=== PATIENT | female | born 2000 | race Caucasian/White ===

== ENCOUNTER 2019-12-17 01:08 | Emergency (ER) | payer BC ==
[~2019-12-17] VITALS: Ht 154.9 cm; Wt 65.9 kg
[2019-12-17 01:14] VITALS: BP 115/58; TEMP 97.9
[2019-12-17 01:41] LABS: COLLECTION METHOD CLEAN CATCH
[2019-12-17 01:47] LABS: MUCOUS Present /lpf; PH 6 (5-8); SQUAMOUS EPITHELIAL 0-2 /hpf; URINE APPEARANCE Clear; URINE BACTERIA None Seen /hpf; URINE BILIRUBIN Negative (NEGATIVE); URINE BLOOD Negative (NEGATIVE); URINE COLOR Yellow; URINE GLUCOSE Negative (NEGATIVE); URINE KETONE Negative (NEGATIVE); URINE LEUKOCYTE ESTERASE Negative (NEGATIVE); URINE NITRATE Negative (NEGATIVE); URINE PROTEIN(semi-quant) Negative (NEGATIVE); URINE RBC 0-2 /hpf; URINE UROBILINOGEN Negative (NEGATIVE)
[2019-12-17 01:55] LABS: TRICYCLIC ANTIDEPRESS URINE NEGATIVE
[2019-12-17] MEDS ORDERED: ATIVAN 1MG T1 MG/TAB PO (02:13)
[2019-12-17 02:19] VITALS: PULSE 83
== END 2019-12-17 02:20 | disposition home or self-care (01) ==
LOC: COL.ER 01:08
PROVIDERS: Emergency Medicine
DX: F41.9 Anxiety disorder, unspecified (principal)

== ENCOUNTER 2021-07-30 06:10 | Emergency (ER) | payer SELFPAY ==
[~2021-07-30] VITALS: Ht 152.4 cm; Wt 73.6 kg
[~2021-07-30 06:10] MED LIST: ATIVAN 1MG T1 MG/TAB PO
[2021-07-30 06:26] VITALS: BP 113/62
[2021-07-30 06:38] LABS: BASO % 0.5 % (0.0-2.0); EOS # 0.1 K/mm3 (0.0-0.7); EOS % 2.4 % (0-4.0); GRAN # 4.2 K/mm3 (1.4-6.5); GRAN % 70.4 % (42.2-75.2); HEMATOCRIT 37.1 % (37.0-47.0); HEMOGLOBIN 12.2 g/dl (12.5-16.0); LYMPH % 16.8 % (20.0-51.0); MEAN CELL VOLUME 91 fl (80.0-100.0); MEAN CORPUSCULAR HEMOGLOBIN 30 pg (27.0-31.0); MEAN CORPUSCULAR HGB CONC 33 g/dl (33.0-37.0); MEAN PLATELET VOLUME 10.9 fl (7.4-10.4); MONO # 0.6 K/mm3 (0.1-0.6); MONO % 9.7 % (1.7-9.3); PLATELET COUNT 207 K/mm3 (130-400); RED BLOOD COUNT 4.06 M/mm3 (4.10-5.30); REDCELL DISTRIBUTION WIDTH-CV 13.9 % (11.5-14.5)
[2021-07-30 06:57] LABS: CALCIUM 9.8 mg/dL (8.4-10.2); CREATININE, serum 0.78 mg/dL (0.57-1.11); POTASSIUM 3.4 mmol/L (3.5-4.5); TOTAL PROTEIN 6.8 gm/dL (6.2-8.1)
[2021-07-30 07:08] LABS: BILIRUBIN,TOTAL 0.9 mg/dL (0.2-1.2)
[2021-07-30 10:34] LABS: COLLECTION METHOD CLEAN CATCH
[2021-07-30 10:49] LABS: MUCOUS Present /lpf; PH 5 (5-8); URINE APPEARANCE Hazy; URINE BACTERIA Rare /hpf; URINE BILIRUBIN Negative (NEGATIVE); URINE BLOOD 3+ (NEGATIVE); URINE COLOR Yellow; URINE GLUCOSE Negative (NEGATIVE); URINE KETONE Negative (NEGATIVE); URINE LEUKOCYTE ESTERASE Negative (NEGATIVE); URINE NITRATE Negative (NEGATIVE); URINE PROTEIN(semi-quant) 1+ (NEGATIVE); URINE RBC >50 /hpf; URINE UROBILINOGEN Negative (NEGATIVE)
[2021-07-30] MEDS ORDERED: FLOMAX 0.40.4 MG/CAP PO (12:07)
[2021-07-30] MEDS ORDERED: ZOFRAN ODT4 MG PO (12:07)
[2021-07-30] MEDS ORDERED: CEPHALEXIN500 M1 PO (12:07)
[2021-07-30] MEDS ORDERED: PERCOCET 325 MG1 TA2 PO (12:07)
[2021-07-30 12:25] VITALS: PULSE 91; TEMP 98.5
== END 2021-07-30 12:25 | disposition home or self-care (01) ==
LOC: COL.ER 06:10
PROVIDERS: Emergency Medicine; Personal Emergency Response Attendant
DX: N13.2 Hydronephrosis with renal and ureteral calculous obstruction (principal)
CPT/HCPCS: J1170; J2405; J7030

== ENCOUNTER 2022-03-27 17:19 | Emergency (ER) | payer MEDICAID ==
[~2022-03-27] VITALS: Ht 152.4 cm; Wt 69.5 kg
[~2022-03-27 17:19] MED LIST changes: +CEPHALEXIN500 M1 PO; +FLOMAX 0.40.4 MG/CAP PO; +PERCOCET 325 MG1 TA2 PO; +ZOFRAN ODT4 MG PO
[2022-03-27 17:35] VITALS: TEMP 97.1
[2022-03-27 20:08] VITALS: BP 132/78; PULSE 76
== END 2022-03-27 20:08 | disposition home or self-care (01) ==
LOC: COL.ER 17:19
DX: O26.893 Other specified pregnancy related conditions, third trimester (principal); M54.32 Sciatica, left side; Z3A.29 29 weeks gestation of pregnancy; Z28.310 Unvaccinated for COVID-19

== ENCOUNTER 2022-05-29 18:54 | Inpatient (IN) | payer MEDICAID ==
[~2022-05-29] VITALS: Ht 152.4 cm; Wt 73.2 kg
[2022-06-06] VITALS (17 sets, daily range): BP systolic 85–123; BP diastolic 53–75; PULSE 49–88; TEMP 97.8–98.6
--- NOTE | 2022-06-06 08:15 | NUR ---
0815 PT AMBULATORY TO UNIT WITH SUPPORT PERSON. PT PLACED IN ROOM, CHANGED INTO GOWN, COMFORTABLE IN BED. EFM TRACING CAT 1, TOCO TRACING. PT REPORTS NO CTX, NO LEAKING OF FLUID, POSITIVE MOVEMENT. UPDATED PT ON PLAN OF CARE. WILL CONTINUE TO MONITOR.
[2022-06-06 09:01] LABS: BASO % 0.3 % (0.0-2.0); EOS % 0.2 % (0.0-4.0); GRAN % 78.3 % (42.2-75.2); HEMOGLOBIN 10.7 g/dl (12.5-16.0); LYMPH % 15.9 % (20.0-51.0); MEAN CELL VOLUME 88 fl (80.0-100.0); MEAN CORPUSCULAR HEMOGLOBIN 30 pg (27-31); MEAN CORPUSCULAR HGB CONC 34 g/dl (33.0-37.0); MEAN PLATELET VOLUME 11.4 fl (7.4-10.4); MONO # 0.6 K/mm3 (0.1-0.6); MONO % 4.6 % (1.7-9.3); PLATELET COUNT 215 K/mm3 (130-400); RED BLOOD COUNT 3.56 M/mm3 (4.10-5.30); REDCELL DISTRIBUTION WIDTH-CV 13.2 % (11.5-14.5)
[2022-06-06 09:02] LABS: HEMATOCRIT 31.4 % (37.0-47.0)
--- NOTE | 2022-06-06 14:06 | NUR ---
Dietitian Helper rounds: Patient and Patient Mother were waiting for their ride. Expected to discharge today. Dietitian Helper provided blessing for baby Asa.
[2022-06-07 05:15] VITALS: BP 105/66; PULSE 75; TEMP 97.8
[2022-06-07 08:30] VITALS: BP 114/62; PULSE 81; TEMP 98.3
[2022-06-07 16:00] VITALS: BP 103/55; PULSE 71; TEMP 97.6
[2022-06-07 19:45] VITALS: BP 115/53; PULSE 65; TEMP 97.9
[2022-06-08 07:00] VITALS: BP 109/67; PULSE 72; TEMP 97.6
[2022-06-08] MEDS ORDERED: IBU800 M1 PO (08:55)
[2022-06-08] MEDS ORDERED: PERCOCET 325 MG1 TA2 PO (08:55)
[2022-06-08] MEDS ORDERED: LEXAPRO 10MG10 MG PO (08:57)
== END 2022-06-08 12:25 | disposition home or self-care (01) | DRG 787 ==
LOC: OB
PROVIDERS: ADMIT Obstetrics & Gynecology
PROC: 10D00Z1 Extraction of Products of Conception, Low, Open Approach (ICD-10-PCS; principal; 2022-06-06)
DX: O34.211 Maternal care for low transverse scar from previous cesarean delivery (principal); O98.32 Other infections with a predominantly sexual mode of transmission complicating childbirth; O99.344 Other mental disorders complicating childbirth; F41.9 Anxiety disorder, unspecified; F32.A Depression, unspecified; A60.09 Herpesviral infection of other urogenital tract; Z3A.39 39 weeks gestation of pregnancy; Z37.0 Single live birth
CPT/HCPCS: J0690; J1885; J2175; J2250; J2370; J2405; J2590; J7120

== ENCOUNTER 2022-06-02 16:22 | Outpatient (CLI) | payer MEDICAID ==
[~2022-06-02] VITALS: Ht 152.4 cm; Wt 73.2 kg
--- NOTE | 2022-06-02 16:20 | NUR ---
PT WHEELED TO L&D UNIT BY Luis Eduardo DAN RN. PT HAD ONE EPISODE OF EMESIS DURING TRANSIT. PT ACCOMPANIES BY PARTNER CASSIE. PT PLACED IN ROOM 5 FOR FURTHER EVALUATION. 1640-PT CHANGED INTO CLEAN GOWN AND PLACED ON MONITOR. PT CAME TO THE UNIT BECAUSE SHE IS HAVING UPPER ABDOMINAL PAIN THAT RADIATES TO HER BACK THAT BEGAN AT 1540. PT DECREASED MOVEMENT, VAGINAL BLEEING, AND LEAKING OF FLUID. SVE FT/50/-3 PERFORMED BY Luis Eduardo DAN RN. VS WNL. 1651- DR. WOOD NOTIFIED VIA TELEPHONE. ORDERS GIVEN FOR IV HDRATION, ZOFRAN, PROTONIX, CBC, CMP, AND UA. RECHECK PT IN ONE HOUR. CARE PLAN UPDATED.
[2022-06-02 17:00] VITALS: BP 114/60; PULSE 81; TEMP 97.6
[2022-06-02 17:53] LABS: COLLECTION METHOD CLEAN CATCH
[2022-06-02 17:57] LABS: BASO % 0.3 % (0.0-2.0); EOS % 0.3 % (0.0-4.0); GRAN # 10.6 K/mm3 (1.4-6.5); GRAN % 75.6 % (42.2-75.2); HEMATOCRIT 31.5 % (37.0-47.0); HEMOGLOBIN 10.5 g/dl (12.5-16.0); LYMPH # 2.4 K/mm3 (1.2-3.4); LYMPH % 17.2 % (20.0-51.0); MEAN CELL VOLUME 90 fl (80.0-100.0); MEAN CORPUSCULAR HEMOGLOBIN 30 pg (27-31); MEAN CORPUSCULAR HGB CONC 33 g/dl (33.0-37.0); MONO # 0.8 K/mm3 (0.1-0.6); MONO % 5.9 % (1.7-9.3); PLATELET COUNT 276 K/mm3 (130-400); REDCELL DISTRIBUTION WIDTH-CV 13.2 % (11.5-14.5)
[2022-06-02 17:58] LABS: URINE APPEARANCE Cloudy (CLEAR/HAZY); URINE BLOOD Negative (NEGATIVE); URINE COLOR Yellow (YELLOW); URINE GLUCOSE Negative (NEGATIVE); URINE KETONE Negative (NEGATIVE); URINE NITRATE Negative (NEGATIVE); URINE PROTEIN(semi-quant) Negative (NEGATIVE); URINE UROBILINOGEN 0.2 E.U/dL (0.2-1.0)
[2022-06-02 18:02] LABS: AMORPHOUS CRYSTAL Present (NOT PRESENT); SQUAMOUS EPITHELIAL 0-2 /hpf (0-10); URINE BACTERIA Rare /hpf (NONE SEEN); URINE RBC None Seen /hpf (0-2); URINE WBC None Seen /hpf (0-2)
[2022-06-02 18:13] LABS: ALBUMIN 2.9 gm/dL (3.5-5.0); BILIRUBIN,TOTAL 0.5 mg/dL (0.2-1.2); CALCIUM 9.4 mg/dL (8.4-10.2); CREATININE, serum 0.6 mg/dL (0.57-1.11); POTASSIUM 3.9 mmol/L (3.5-4.5); TOTAL PROTEIN 6.6 gm/dL (6.2-8.1)
[2022-06-02 18:29] LABS: TRICYCLIC ANTIDEPRESS URINE NEGATIVE
--- NOTE | 2022-06-02 19:00 | NUR ---
1845 - This RN assuming care of patient. 1855 - Discharge instructions reviewed with patient and spouse, verbalized understanding. Pt seen ambulating off unit in stable condition with belongings.
== END 2022-06-02 18:55 | disposition home or self-care (01) ==
LOC: LDRO 16:22
PROVIDERS: Obstetrics & Gynecology
DX: Z34.93 Encounter for supervision of normal pregnancy, unspecified, third trimester (principal); Z3A.39 39 weeks gestation of pregnancy
CPT/HCPCS: C9113; J2405; J7120

== ENCOUNTER 2022-07-22 21:41 | Emergency (ER) | payer MEDICAID ==
[~2022-07-22] VITALS: Ht 152.4 cm; Wt 65.0 kg
[~2022-07-22 21:41] MED LIST changes: +CARAFATE 1GM1 G PO; +IBU800 M1 PO; +LEXAPRO 10MG10 MG PO; +OMNICEF 300MG300 MG PO; +PRIL40 PO
[2022-07-22 21:47] VITALS: TEMP 97.1
[2022-07-22 23:10] VITALS: BP 127/77; PULSE 69
== END 2022-07-22 23:14 | disposition home or self-care (01) ==
LOC: COL.ER 21:41
DX: M79.81 Nontraumatic hematoma of soft tissue (principal); Z28.310 Unvaccinated for COVID-19

== ENCOUNTER 2022-07-28 07:46 | Day surgery (SDC) | payer MEDICAID ==
[~2022-07-28] VITALS: Ht 152.4 cm; Wt 65.8 kg
[2022-07-28] VITALS (11 sets, daily range): BP systolic 99–124; BP diastolic 48–77; PULSE 51–91; TEMP 98–99.6
[2022-07-28] MEDS ORDERED: NORCO 325 MG-51 TAB PO (10:54)
--- NOTE | 2022-07-28 16:35 | NUR ---
1150-PT TO BAY 3 FROM PACU. REPORT RECEIVED. VS OBTAINED. PT RESTING COMFORTABLY. CALL LIGHT WITHIN REACH. DENIES ANY NEEDS. 1235-PT CONTINUES TO REST. 1305-PT TOLERATING WATER WITHOUT DIFFICULTY. 1405-PT CONTINUES TO DENY ANY NEEDS. 1435-PT TOLERATING APPLESAUCE. 1500-PT UP TO RESTROOM AND VOIDED WITHOUT DIFFICULTY. PT RATING PAIN AT 5-6/10. NORCO 5/325 GIVEN AT THIS TIME. 1530-ICE TO ABDOMEN. 1610-IV DC'D AT THIS TIME. PT STATES ICE IS HELPING WITH DISCOMFORT. 1630-DISCHARGE EDUCATION COMPLETED WITH PT. VERBALIZED UNDERSTANDING OF HOME AND FOLLOW UP CARE. ALL QUESTIONS ANSWERED. DISCHARGE PAPERWORK GIVEN TO PT. 1635-PT OFF UNIT PER WHEELCHAIR. PT DISCHARGED TO HOME WITH HER MOTHER PER PERSONAL VEHICLE.
== END 2022-07-28 16:35 | disposition home or self-care (01) ==
LOC: SDCO 07:46
DX: K80.10 Calculus of gallbladder with chronic cholecystitis without obstruction (principal)
CPT/HCPCS: J0690; J1100; J2175; J2270; J2405; J2550; J2704; J3010; J7120; Q9966

== ENCOUNTER 2023-10-13 18:13 | Outpatient (CLI) | payer MEDICAID ==
[~2023-10-13] VITALS: Ht 152.4 cm; Wt 75.0 kg
[~2023-10-13 18:13] MED LIST changes: +NORCO 325 MG-51 TAB PO
--- NOTE | 2023-10-13 18:30 | NUR ---
1829- Pt arrives on unit ambulatory with complaints of increased discharge and possible SROM. Pt shows this RN a picture of what was on her underwear, mucous discharge with small ring of fluid around it. Pt denies any other discharge and did not wear a peripad into hospital. Pt changes into gown. 1835- Pt into bed. EFM and TOCO applied, this RN remains at bedside adjusting EFM. Large amount of movement heard and felt by Pt and this RN. 1849- FHR x2 tracing intermittently, able to verify both babies and moderate variablity for both. Pt states she had appointment today and they did an US, reported both babies were doing well. Assessments completed. Pt denies VB, UCs. VSS. 1908- Amniotrace performed, Pt encouraged to cough, negative. Pt tolerated well. 1922- Pt updated on plan to discharge home. SROM and labor precautions explained. Pt encourged to take vitamins. Pt denies questions. 1934- Discharge paperwork given and explained. Pt denies questions. Pt ambulates off unit in stable condition.
[2023-10-13 19:23] VITALS: BP 99/57; PULSE 86; TEMP 98.3
== END 2023-10-13 19:35 | disposition home or self-care (01) ==
LOC: LDRO 18:13 → EDSTATUS 19:10 → LDRO 19:35
DX: Z34.92 Encounter for supervision of normal pregnancy, unspecified, second trimester (principal); Z3A.24 24 weeks gestation of pregnancy

== ENCOUNTER 2024-01-17 09:08 | Inpatient (IN) | payer MEDICAID ==
[2024-01-17] VITALS (18 sets, daily range): BP systolic 103–131; BP diastolic 55–79; PULSE 48–92; TEMP 97.8–98.5
[~2024-01-17] VITALS: Ht 152.4 cm; Wt 83.6 kg
[2024-01-17] MEDS ORDERED: LR 1,000 ML IV SCH ×2 (09:30→10:00)
[2024-01-17 09:47] LABS: BASO % 0.3 % (0.0-2.0); EOS % 0.3 % (0.0-4.0); GRAN # 6.7 K/mm3 (1.4-6.5); GRAN % 72.8 % (42.2-75.2); LYMPH # 1.9 K/mm3 (1.2-3.4); LYMPH % 20.7 % (20.0-51.0); MEAN CELL VOLUME 82 fl (80.0-100.0); MEAN CORPUSCULAR HGB CONC 32 g/dl (33.0-37.0); MEAN PLATELET VOLUME 11.2 fl (7.4-10.4); MONO # 0.5 K/mm3 (0.1-0.6); MONO % 5.2 % (1.7-9.3); PLATELET COUNT 230 K/mm3 (130-400); RED BLOOD COUNT 3.64 M/mm3 (4.10-5.30); REDCELL DISTRIBUTION WIDTH-CV 17.2 % (11.5-14.5)
[2024-01-17 09:50] LABS: HEMATOCRIT 29.8 % (37.0-47.0); HEMOGLOBIN 9.5 g/dl (12.5-16.0); MEAN CORPUSCULAR HEMOGLOBIN 26 pg (27-31)
[2024-01-17] MEDS ORDERED: Ondansetron 4 MG/2 ML VIAL IV SCH (10:00)
[2024-01-17] MEDS ORDERED: PRENATAL TABLET PO (10:06)
[2024-01-17] MEDS ORDERED: PROFERRIN ES12 MG PO (10:07)
[2024-01-17] MEDS ORDERED: Phenylephrine 10 MG/ML VIAL ONE (10:25)
[2024-01-17] MEDS ORDERED: Oxytocin 10 UNITS/ML VIAL ONE (10:25)
[2024-01-17] MEDS ORDERED: ePHEDrine 50 MG/ML VIAL ONE (10:25)
[2024-01-17] MEDS ORDERED: NS 10 ML IV ONE ×2 (10:27→11:16)
--- NOTE | 2024-01-17 10:40 | NUR ---
PATIENT AMBULATES TO SECTION SUITE.
[2024-01-17] MEDS ORDERED: Ketorolac 30 MG/ML VIAL ONE (11:01)
[2024-01-17] MEDS ORDERED: Ondansetron 4 MG/2 ML VIAL ONE (11:04)
[2024-01-17] MEDS ORDERED: dexAMETHasone 10 MG/ML VIAL ONE (11:16)
[2024-01-17] MEDS ORDERED: Sennosides/Docusate 8.6-50 MG TAB PO SCH (11:32)
[2024-01-17] MEDS ORDERED: Loratadine 10 MG TAB PO PRN (11:45)
[2024-01-17] MEDS ORDERED: Magnes Hydrox (MOM) 80 MG/ML 30 ML CUP PO PRN (11:45)
[2024-01-17] MEDS ORDERED: oxyCODONE 5 MG TAB PO PRN (11:45)
[2024-01-17] MEDS ORDERED: Measles/Mumps/Rubella Virus Vaccine Live w Diluent 0.5 ML VIAL SQ SCH (11:45)
[2024-01-17] MEDS ORDERED: Naloxone 0.4 MG/ML VIAL IV PRN (11:45)
[2024-01-17] MEDS ORDERED: Ondansetron 4 MG/2 ML VIAL IV PRN (11:45)
[2024-01-17] MEDS ORDERED: Acetaminophen 500 MG TAB PO SCH (11:45)
[2024-01-17] MEDS ORDERED: LR 1,000 ML IV PRN (11:45)
--- NOTE | 2024-01-17 13:23 | NUR ---
PATIENT'S QBL AT THIS TIME INCLUDING SURGERY IS 1,020. NOTIFIED. NEW ORDERS FOR 1 G TXA IV NOW AND 0.2 MG METHERGINE IM NOW GIVEN.
[2024-01-17 13:24] LABS: TRICYCLIC ANTIDEPRESS URINE NEGATIVE (NEGATIVE)
[2024-01-17] MEDS ORDERED: Methylergonovine 0.2 MG/ML 1 ML AMPUL IM ONE (13:30)
[2024-01-17] MEDS ORDERED: Tranexamic Acid 1,000 MG in NS 100 ML IV ONE (13:30)
[2024-01-17] MEDS ORDERED: Ibuprofen 800 MG TAB PO SCH (17:32)
--- NOTE | 2024-01-17 17:50 | NUR ---
PATIENT UP TO BATHROOM X1 ASSIST BY THIS RN. PATIENT ABLE TO VOID. PERICARE COMPLETED. PATIENT ASSITED BACK TO BED.
--- NOTE | 2024-01-17 18:30 | NUR ---
Report recieved at this time. Resting in bed while attempting to tandem nurse. Updated whiteboard and reviewed POC. Verbalized understanding.
--- NOTE | 2024-01-17 20:00 | NUR ---
Reports she attempted to void but does not feel like she has drank enough water. Encouraged to drink a mug of water and attempt again between 2200 and 2300. Lochia remains scant.
[2024-01-17] MEDS ORDERED: traZODone 50 MG TAB PO PRN (21:00)
[2024-01-18] VITALS: BP 114/52; PULSE 58; TEMP 98
[2024-01-18 04:30] VITALS: BP 117/72; PULSE 53; TEMP 98.3
[2024-01-18 07:10] VITALS: BP 117/62; PULSE 52; TEMP 97.6
--- NOTE | 2024-01-18 10:35 | NUR ---
Initial visit; Parents each holding a baby boy thanked Associate Financial Planner for offering congratulations and God's blessings for their twins. Associate Financial Planner thanked family for choosing [facility].
--- NOTE | 2024-01-18 14:22 | NUR ---
manufacturing worker received a consult for mother and twin boys for identified risk of prescense of illegal drugs. SW was informed pt tested positive at the beginning of her for marijuana, but was negative upon delivery. Cord blood pending. manufacturing worker met with patient, partner, and one Latrell in room to discuss intake information. She reports the other twin is Maycol and he is "smaller" and struggling to maintain glucose so he remains in the nursery. She states she has been able to visit him adequately. SW witnessed mother tend to Latrell when he cried and changed diaper. Partner was on his phone sitting in the chair in the corner. Mother reports she lives in [place] and has a 5 year old and 1 year old girl as other children. She reports the 5 year old has a different father and he recently moved two hours away. She states these two children are with pt's mother now. She reports feeling anxious for tomorrow for when her mom has to leave and who will watch the other children. She reports her 5 year old will go with her brother and the 1 year old with pt's current partner/FOB. She reports that the 5 year old is staying with her for the summer and she only has to manage the time and scheduling for time being. The 5 year old will go to her father's for kindergarten and daycare in the coming year. Pt states she works at [employer] and FOB works nights. Pt intends to work opposite schedules as FOB to accomodate for child care associate needs. She will switch to days and FOB will work nights so they can switch off. She intends to return to work in 3-6 weeks and states she has "enough saved up." Pt states she tried to put her oldest in [facility] child care associate, but it was a lot of work, too much time, and paperwork to manage. She acknowledges daycares being full and having family nearby. She states her family and FOB are both good supports nearby, but reports "they have their own lives." She states FOB has trust issues, but she might consider a shampoo person if needed. Pt reports to be enrolled in food stamps, and has to attend an upcoming appointment for [employer] benefits; once she can drive. Pt and FOB both live separately and have their own transportation. She states she sees Dr. Flores at [facility] and all her children will go to Dr. Howard. Pt states she gets diapers each month from [employer] for her one year old. She requests assistance getting premie and diapers for the twins. She informs SW that Rosalie is out of the office and to reach out to Letitia. SW states she will do so. SW inquired about formula/breast feeding. She states she will do both, but is waiting for her milk to come in; so she is supplementing. Pt requests assistance with formula as she does not have WIC yet. SW advised [facility] and see if [facility] formula. Pt notes nursing often provides some upon discharge. Mother informs SW she has enough clothing and wipes for all children. The twins' carseats are in her car and she has a double bassinet. Mother has no mental health or substance use concerns. SW inquired about testing positive in early . Mother reports she only used it because she was "very nauseaous" and when she "knew she didn't get enough to eat." Pt reports to have stopped and was negative upon delivery. SW provided resource guide and mental health providers. Pt accepted and was open to calling SW if she has further needs. NICOLA spoke with Letitia at [employer] who reports [facility] is out and cannot deliever items until March. She looked up pt and confirmed pt gets diapers for the one year old and she can add premie and diapers. SW asked about formula and she will include this. 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 SW called patient and informed her that [facility] cannot deliver, but she can pick them up in the office. Mother states she will have her mother pick these items up tomorrow and this should hold her over until she is set up with WIC. Pt had no further needs for SW and was grateful for the help. NICOLA made CPS report intake #[id number] for substance use in .
[2024-01-18 17:08] VITALS: BP 116/56; PULSE 72; TEMP 98
[2024-01-18 19:00] VITALS: BP 112/56; PULSE 134; TEMP 98.5
[2024-01-19 07:00] VITALS: BP 113/60; PULSE 76; TEMP 98.8
[2024-01-19 17:00] VITALS: BP 120/67; PULSE 84; TEMP 98.5
[2024-01-19 21:25] VITALS: BP 117/66; PULSE 72; TEMP 98.6
[2024-01-20 08:46] VITALS: BP 116/71; PULSE 85; TEMP 98.8
== END 2024-01-20 16:00 | disposition home or self-care (01) | DRG 787 ==
LOC: OB 09:08
PROVIDERS: ADMIT Obstetrics & Gynecology
PROC: 10D00Z1 Extraction of Products of Conception, Low, Open Approach (ICD-10-PCS; principal; 2024-01-17)
DX: O34.211 Maternal care for low transverse scar from previous cesarean delivery (principal); O72.1 Other immediate postpartum hemorrhage; O30.043 Twin pregnancy, dichorionic/diamniotic, third trimester; Z3A.38 38 weeks gestation of pregnancy; Z37.2 Twins, both liveborn; Z88.8 Allergy status to other drugs, medicaments and biological substances
CPT/HCPCS: J0665; J0690; J1100; J1885; J2210; J2371; J2405; J2590; J2765; J7120